=== PATIENT | male | born 1950 | race Caucasian/White ===

== ENCOUNTER → 2017-02-19 | Outpatient (CLI) | payer BC ==
[~2017-02-19] MED LIST: ASMTWH INH; ASPEC325 PO; ATOR-22 PO; CHOL100041 PO; COEN1CAP17 PO; FEXO1TAB46 PO; FLM4 PO; METO25TA56 PO; MODA1TAB PO; MULT-506 PO; NTRGSL/4 SL; OMEG120013 PO; POLY1DRO2 OPB; POLYSOL4 OPB; PSYL55.43 PO; VNTHFA/IN INH
[2017-02-19 09:38] LABS: BASO % 0.3 %; BASO ABS # 0.02 K/uL (0-0.2); COMPLETE YES; EOS % 1.6 %; HEMATOCRIT 39.8 % (42-52); IG% 0.2 %; LYMPH % 14.1 %; LYMPH ABS # 0.89 K/uL (1.2-3.4); MEAN CELL VOLUME 90.7 fL (80-100); MEAN CORPUSCULAR HEMOGLOBIN 31.4 pg (25-34); MEAN CORPUSCULAR HGB CONC 34.7 g/dl (32-36); MEAN PLATELET VOLUME 11.4 fL (7.4-10.4); MONO % 8.8 %; PLATELET COUNT 147 K/uL (130-400); RED BLOOD COUNT 4.39 M/uL (4.7-6.1); WHITE BLOOD COUNT 6.33 K/uL (4.8-10.8)
[2017-02-19 09:51] LABS: ESTIMATED AVERAGE GLUCOSE 197 mg/dl; HA1C FLAG Normal (Normal)
[2017-02-19 10:03] LABS: ALT/SGPT 58 U/L (12-78); AST/SGOT 30 U/L (15-37); BLOOD UREA NITROGEN 14 mg/dl (7-18); CALCIUM 8.7 mg/dl (8.5-10.1); CARBON DIOXIDE 30 mmol/L (21-32); CHLORIDE 104 mmol/L (98-107); CHOLESTEROL 194 mg/dl (0-200); CREATININE 0.85 mg/dl (0.60-1.40); GLUCOSE 185 mg/dl (70-99); POTASSIUM 4.4 mmol/L (3.5-5.1); SODIUM 139 mmol/L (136-145); TRIGLYCERIDES 161 mg/dl (0-150); VERY LOW DENSITY LIPOPROT CALC 32 mg/dl
[2017-02-19 10:11] LABS: ALB/GLOB RATIO 1.1 (0.9-2); ALKALINE PHOSPHATASE 65 U/L (45-117); HDL CHOLESTEROL 64 mg/dl; LDL CHOLESTEROL CALCULATED 98 mg/dl; PHOSPHORUS 3.2 mg/dl (2.5-4.9); URIC ACID 3.5 mg/dl (2.6-7.2)
[2017-02-22 11:43] LABS: C-REACTIVE PROT HIGHSEN 16.5 MG/L
== END | disposition home or self-care (01) ==
LOC: C.LAB 07:15
PROVIDERS: ATTEND Family Medicine
DX: R73.09 Other abnormal glucose (principal); E55.9 Vitamin D deficiency, unspecified; D51.9 Vitamin B12 deficiency anemia, unspecified

== ENCOUNTER → 2017-08-25 | Outpatient (CLI) | payer BC ==
[2017-08-25 09:42] LABS: BASO % 0.4 %; BASO ABS # 0.02 K/uL (0-0.2); COMPLETE YES; EOS % 1.5 %; HEMATOCRIT 40.3 % (42-52); IG% 0.2 %; LYMPH % 18.8 %; LYMPH ABS # 1.03 K/uL (1.2-3.4); MEAN CELL VOLUME 92.6 fL (80-100); MEAN CORPUSCULAR HEMOGLOBIN 31.7 pg (25-34); MEAN CORPUSCULAR HGB CONC 34.2 g/dl (32-36); MEAN PLATELET VOLUME 11.3 fL (7.4-10.4); MONO % 9.3 %; NEUT % 69.8 %; PLATELET COUNT 144 K/uL (130-400); RED BLOOD COUNT 4.35 M/uL (4.7-6.1); WHITE BLOOD COUNT 5.49 K/uL (4.8-10.8)
[2017-08-25 09:57] LABS: ALT/SGPT 45 U/L (12-78); AST/SGOT 24 U/L (15-37); BLOOD UREA NITROGEN 14 mg/dl (7-18); BUN/CREATININE RATIO 17.7 (10-20); CALCIUM 9.3 mg/dl (8.5-10.1); CARBON DIOXIDE 28 mmol/L (21-32); CHLORIDE 104 mmol/L (98-107); CHOLESTEROL 153 mg/dl (0-200); CREATININE 0.79 mg/dl (0.60-1.40); GLUCOSE 125 mg/dl (70-99); POTASSIUM 4.2 mmol/L (3.5-5.1); SODIUM 139 mmol/L (136-145); TRIGLYCERIDES 136 mg/dl (0-150); URIC ACID 5.1 mg/dl (2.6-7.2); VERY LOW DENSITY LIPOPROT CALC 27 mg/dl
[2017-08-25 10:06] LABS: ALB/GLOB RATIO 1.2 (0.9-2); ALKALINE PHOSPHATASE 48 U/L (45-117); CHOLESTEROL/HDL RATIO 2.6; HDL CHOLESTEROL 59 mg/dl; LDL CHOLESTEROL CALCULATED 67 mg/dl; TOTAL IRON BINDING CAPACITY 345 mcg/dl (250-450)
== END | disposition home or self-care (01) ==
LOC: C.LAB 08:28
PROVIDERS: ATTEND Family Medicine
DX: R73.09 Other abnormal glucose (principal); E55.9 Vitamin D deficiency, unspecified; D51.9 Vitamin B12 deficiency anemia, unspecified; E78.9 Disorder of lipoprotein metabolism, unspecified; R53.83 Other fatigue

== ENCOUNTER → 2017-12-21 | Outpatient (CLI) | payer BC ==
[2017-12-21 09:34] LABS: BASO % 0.2 %; BASO ABS # 0.01 K/uL (0-0.2); EOS % 2.3 %; EOS ABS # 0.12 K/uL (0-0.5); HEMOGLOBIN 13.6 g/dL (14.0-18.0); IG# 0.01 K/uL (0.00-0.02); LYMPH % 21.6 %; LYMPH ABS # 1.13 K/uL (1.2-3.4); MEAN CELL VOLUME 93.6 fL (80-100); MEAN CORPUSCULAR HEMOGLOBIN 31.1 pg (25-34); MEAN CORPUSCULAR HGB CONC 33.2 g/dl (32-36); MONO % 7.7 %; NEUT ABS # 3.55 K/uL (1.4-6.5); PLATELET COUNT 147 K/uL (130-400); RED CELL DISTRIBUTION WIDTH SD 48.3 fL (36.4-46.3); WHITE BLOOD COUNT 5.22 K/uL (4.8-10.8)
[2017-12-21 09:50] LABS: HEMOGLOBIN A1C 6.7 % (4.5-5.6)
[2017-12-21 09:57] LABS: ALBUMIN 3.7 gm/dl (3.4-5.0); ALKALINE PHOSPHATASE 47 U/L (45-117); ALT/SGPT 53 U/L (12-78); BLOOD UREA NITROGEN 15 mg/dl (7-18); CALCIUM 8.9 mg/dl (8.5-10.1); CARBON DIOXIDE 30 mmol/L (21-32); CREATININE 0.86 mg/dl (0.60-1.40); GLUCOSE 132 mg/dl (70-99); POTASSIUM 4.4 mmol/L (3.5-5.1); SODIUM 137 mmol/L (136-145); TOTAL PROTEIN 6.8 gm/dl (6.4-8.2); URIC ACID 4.8 mg/dl (2.6-7.2)
[2017-12-21 10:20] LABS: AST/SGOT 27 U/L (15-37); CHOLESTEROL 130 mg/dl (0-200); LDL CHOLESTEROL CALCULATED 51 mg/dl; TRANSFERRIN 254 mg/dl (200-360)
== END | disposition home or self-care (01) ==
LOC: C.LAB 07:57
PROVIDERS: ATTEND Family Medicine
DX: E88.81 Metabolic syndrome and other insulin resistance (principal); E55.9 Vitamin D deficiency, unspecified; D51.9 Vitamin B12 deficiency anemia, unspecified; E78.9 Disorder of lipoprotein metabolism, unspecified; R53.83 Other fatigue; N40.1 Benign prostatic hyperplasia with lower urinary tract symptoms; N52.9 Male erectile dysfunction, unspecified

== ENCOUNTER → 2018-01-10 | Outpatient (CLI) | payer BC ==
--- NOTE | 2018-01-10 11:08 | DIAGNOSTIC IMAGING REPORT ---
[facility] CLINICAL HISTORY: Nephrolithiasis. COMPARISON STUDY: CT of the abdomen and pelvis April 29, 2012 and KUB December 04, 2016. FINDINGS: A 4 mm calculus within lower pole of the left kidney is noted. No right renal calculi are identified. Pelvic calcifications likely reflect phleboliths. A 2 mm left pelvic calcification is new since prior exam of December 04, 2016. IMPRESSION: 1. 4 mm calculus within lower pole of the left kidney. 2. 2 mm left pelvic calcification. This is new since previous exam although a phlebolith is favored. A distal left ureteral calculus could appear similar although is considered less likely unless this patient has left flank pain. Electronically signed by: Joseph Kelly M.D. 01/10/2018 11:06 AM Dictated Date/Time: 01/10/2018 11:03 AM
== END | disposition home or self-care (01) ==
LOC: C.RAD 10:21
PROVIDERS: ATTEND Urology
DX: I25.10 Atherosclerotic heart disease of native coronary artery without angina pectoris (principal)

== ENCOUNTER → 2018-06-21 | Outpatient (CLI) | payer BC ==
[2018-06-21 09:37] LABS: BASO % 0.4 %; BASO ABS # 0.03 K/uL (0-0.2); EOS % 1.1 %; EOS ABS # 0.08 K/uL (0-0.5); HEMATOCRIT 39.1 % (42-52); HEMOGLOBIN 13.1 g/dL (14.0-18.0); IG# 0.03 K/uL (0.00-0.02); LYMPH % 16.7 %; LYMPH ABS # 1.23 K/uL (1.2-3.4); MEAN CELL VOLUME 92.4 fL (80-100); MEAN CORPUSCULAR HGB CONC 33.5 g/dl (32-36); MEAN PLATELET VOLUME 11.3 fL (7.4-10.4); MONO % 4.9 %; MONO ABS # 0.36 K/uL (0.11-0.59); NEUT % 76.5 %; NEUT ABS # 5.63 K/uL (1.4-6.5); PLATELET COUNT 218 K/uL (130-400); RED CELL DISTRIBUTION WIDTH SD 47.7 fL (36.4-46.3); WHITE BLOOD COUNT 7.36 K/uL (4.8-10.8)
[2018-06-21 09:47] LABS: HEMOGLOBIN A1C 7.4 % (4.5-5.6)
[2018-06-21 10:00] LABS: ALBUMIN 3.3 gm/dl (3.4-5.0); ALKALINE PHOSPHATASE 53 U/L (45-117); ALT/SGPT 49 U/L (12-78); AST/SGOT 28 U/L (15-37); BLOOD UREA NITROGEN 15 mg/dl (7-18); CALCIUM 8.6 mg/dl (8.5-10.1); CARBON DIOXIDE 27 mmol/L (21-32); CHOLESTEROL 125 mg/dl (0-200); CREATININE 0.92 mg/dl (0.60-1.40); GLUCOSE 144 mg/dl (70-99); LDL CHOLESTEROL CALCULATED 48 mg/dl; POTASSIUM 4.3 mmol/L (3.5-5.1); SODIUM 136 mmol/L (136-145); TOTAL PROTEIN 6.8 gm/dl (6.4-8.2); TRANSFERRIN 238 mg/dl (200-360); URIC ACID 4.6 mg/dl (2.6-7.2)
== END | disposition home or self-care (01) ==
LOC: C.LAB 07:51
PROVIDERS: ATTEND Family Medicine
DX: R73.09 Other abnormal glucose (principal); E55.9 Vitamin D deficiency, unspecified; D51.9 Vitamin B12 deficiency anemia, unspecified; E78.9 Disorder of lipoprotein metabolism, unspecified; R53.83 Other fatigue

== ENCOUNTER 2022-10-31 19:23 | Observation (INO) ==
[2022-10-31] MEDS ORDERED: ASPIRIN CHEW 324 MG PO STA (19:46)
[2022-10-31] MEDS ORDERED: NITROGLYCERIN SL 0.4 MG/TAB TAB SL STA (19:47)
[2022-10-31 19:50] LABS: Basophils # (auto) 0.04 K/uL (0-0.2); Basophils % (auto) 0.6 %; Eosinophils # (auto) 0.11 K/uL (0-0.50); Eosinophils % (auto) 1.5 %; Hematocrit (blood only) 40.9 % (40.1-51.0); Hemoglobin 13.7 g/dl (14.0-18.0); Immature Granulocytes # (auto) 0.01 K/uL (0.00-0.02); Immature Granulocytes % (auto) 0.1 %; Lymphocytes # (auto) 1.77 K/uL (1.2-3.4); Lymphocytes % (auto) 24.4 %; Mean Corpuscular Hemoglobin 31.9 pg (25.0-34.0); Mean Corpuscular Hgb Conc 33.5 g/dL (32.0-36.0); Mean Corpuscular Volume 95.1 fL (80.0-100.0); Mean Platelet Volume 10.6 fL (9.4-12.4); Monocytes # (auto) 0.56 K/uL (0.24-0.82); Monocytes % (auto) 7.7 %; Neutrophils # (auto) 4.76 K/uL (1.4-6.5); Neutrophils % (auto) 65.7 %; Platelet Count 157 K/uL (130-400); RDW Coefficient of Variation 14.2 % (11.5-14.5); RDW Standard Deviation 49.1 fL (36.4-46.3); White Blood Count 7.25 K/ul (4.8-10.8)
--- NOTE | 2022-10-31 20:02 | Emergency Department Note ---
Impression & Plan Chest pain, Nausea ED Provider Note NAME: AURY ARMENTA Jr AGE: 72 SEX: M : 1950 ARRIVES VIA: Walk-In INFORMANT: Patient ED PROVIDER(S): Arun Felipe DO CHIEF COMPLAINT: chest pressure HPI: Patient is a 72-year-old male who presents ER with a past medical history of hyperlipidemia, diabetes, CAD with a stent in 2009 and a CABG in 2010 who presents to the ER for nausea and chest pressure. He has been sick to his stomach for the majority of the day today. About an hour prior to arrival he started having mid chest pressure. No arm pain or jaw pain. No shortness of breath that he can ascertain. Denies any belly pain. No dysuria, urgency, or frequency. No other exacerbating or remitting factors. Pain is currently a 2-3 out of 10. Did improve with nitro. ROS: See above HPI for pertinent positives & negatives. A total of 10 systems reviewed and were otherwise negative. PAST MEDICAL HISTORY:See Below PAST SURGICAL HISTORY:See Below FAMILY HISTORY:See Below SOCIAL HISTORY:See Below HOME MEDICATIONS:See Below ALLERGIES:See Below VITALS:See Below PHYSICAL EXAMINATION: GENERAL: Sitting up in bed, alert, well appearing, well nourished, no distress, non-toxic EYE EXAM: normal conjunctiva. OROPHARYNX: no exudate, no erythema, lips, buccal mucosa, and tongue normal and mucous membranes are moist NECK: supple, no nuchal rigidity, no adenopathy, non-tender LUNGS: Clear to auscultation. Normal chest wall mechanics HEART: no murmurs, S1 normal and S2 normal ABDOMEN: abdomen soft, non-tender, normo-active bowel sounds, no masses, no r ebound or guarding. BACK: Back is symmetrical on inspection and there is no deformity, no midline t enderness, no CVA tenderness. SKIN: no rashes and no bruising UPPER EXTREMITIES: upper extremities are grossly normal. LOWER EXTREMITIES: No pitting edema. NEURO EXAM: Normal sensorium, cranial nerves II-XII grossly intact, normal speech, no gross weakness of arms, no gross weakness of legs. MEDICAL DECISION MAKING: Patient 72-year-old male with past medical history of previous stents and bypass that presents to the ER for nausea and chest pressure. Improved with nitro at home. IVs were established blood work was obtained. EKG shows new T wave inversions in V4 through V6 and nonspecific ST wave changes which are new in comparison to EKG in 2014. IV was established blood was obtained. Labs show no significant leukocytosis. No anemia. BMP along with LFTs bilirubin lipase was unremarkable. Troponin was negative. COVID-negative. Lipase was unremarkable. Chest x-ray was clean. Patient was given nitro while in the ER and his pain completely resolved. He was also given aspirin. He was updated bedside. Chest x-ray was clean. Discussed with Pj Christie for further evaluation. Triage Nursing notes reviewed. Limited review of prior medical records performed Vital Signs: reviewed and remarkable for no significant abnormalities Differential diagnosis: Cardiac ischemia, aortic dissection, pulmonary embolism, pneumothorax, pneumonia, pericarditis, myocarditis, esophageal rupture, GERD, cholecystitis, pancreatitis, musculoskeletal, as well as other pathologies. ER treatment provided: See below Diagnostics interpreted by me: ECG: Sinus rhythm rate 65 Left axis No PVCs T wave inversion in the septal leads ST depressions in V4 through V6 with T wave inversions new in comparison to old ekg in 2014 QTC 434 Cardiac Monitoring: An order was placed for continuous cardiac monitoring. The monitor shows a rate of 60 with sinus rhythm. Laboratory studies: As stated above and show below. Imaging studies: Portable AP upright 1 view the chest was unremarkable Consultation(s): Discussed with Dr. Pj Christie for further evaluation Procedures: none Critical Care: None Past Med/Surg History Medical History Arthritis COVID-19 Elevated PSA GERD (gastroesophageal reflux disease) Gross hematuria H/O adenomatous polyp of colon History of colon polyps Migraine 25 YRS AGO-WITH VISION DISTORTION AT THE TIME MVP (mitral valve prolapse) HX NO DENTAL PREMED Restrictive lung disease secondary to obesity UTI (urinary tract infection) Surgical History H/O lithotripsy History of colonoscopy History of tooth extraction WISDOM TEETH S/P CABG x 2 (2010) YAMINI & LEON grafts, no vein grafts Status post insertion of drug-eluting stent into left anterior descending artery for coronary artery disease (2009) Family History Father Myocardial infarction Coronary heart disease Diabetes Aunt Family history of diabetes mellitus Mother Myocardial infarction age related Glaucoma Aunt Diabetes maternal Denies family history of Prostate cancer Breast cancer Colorectal cancer Social History Smoking Status: Never smoker Second Hand Exposure: Yes ( A CHILD); Hx Alcohol Use: Yes Alcohol type: beer, wine and hard liquor Alcohol Intake Frequency Comment: 1-2 times weekly Hx Substance Use: No Preferred Language: Senegalese Communication Ability: Effective Visual Impairment: Limited Hearing Ability: Normal 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 Beliefs That Will Affect Care: None marital status: Current Living Situation: Spouse and Family current occupational status: retired How many Children do You have: 2 Feels Safe at Home: Yes Childhood Exposure to Second-Hand Smoke: Yes caffeine: Yes (coffee ) Dental Care, Regularly: Yes Physical Activity Frequency: Daily Physical Activity Frequency Comment: walks Seatbelt Use: always Sunscreen Use: Yes Assistive Devices: Glasses Allergies Allergies Allergy/AdvReac Type Severity Reaction Status Date / Time cat dander Allergy Mild CONGESTION Verified 10/31/22 20:15 Home Meds Home Medications Medication Instructions Recorded Confirmed multivitamin (Daily Multi-Vitamin 0.5 tab PO BID 09/19/19 10/31/22 tablet) aspirin 325 mg tablet 325 mg PO HS 11/30/19 10/31/22 fexofenadine 180 mg tablet 180 mg PO DAILY PRN Congestion 11/30/19 10/31/22 psyllium husk 3.4 gram/5.4 gram 1 tbsp PO QAM 11/30/19 10/31/22 oral powder (Metamucil) artificial tears(hypromellose) 0.3 1 drp ophthalmic (eye) DAILY PRN 09/25/21 10/31/22 % eye gel (Systane Gel) Dry Eyes biotin 1,000 mcg chewable tablet 1,000 mcg PO TID 09/25/21 10/31/22 cholecalciferol (vitamin D3) 25 1,000 unit PO TID 09/25/21 10/31/22 mcg (1,000 unit) capsule propylene glycol 0.6 % eye drops 2 drp ophthalmic (eye) DAILY PRN 09/25/21 10/31/22 (Systane Balance) Dry Eyes CPAP Machine 07/31/22 09/29/22 ascorbic acid (vitamin C) 500 mg 500 mg PO DAILY 07/31/22 10/31/22 tablet zinc gluconate 50 mg tablet 50 mg PO DAILY 07/31/22 10/31/22 coQ10 (ubiquinol) 200 mg capsule 200 mg PO Q OTHER DAY 10/31/22 10/31/22 mometasone 220 mcg/actuation(60 1 inh inhalation BID 10/31/22 10/31/22 doses) breath activated powder inhaler (Asmanex Twisthaler) Previous Rx's Medication Instructions Recorded albuterol sulfate 90 mcg/actuation See Rx Instructions .Route 04/21/22 aerosol inhaler .COMPLEX #18 ea sildenafil 100 mg tablet 100 mg PO DAILY PRN sexual 04/21/22 activity #10 tabs modafinil 200 mg tablet 200 mg PO DAILY #90 tabs 06/01/22 atorvastatin 40 mg tablet 40 mg PO HS #90 tabs 07/06/22 losartan 50 mg-hydrochlorothiazide 1 tab PO QAM #90 tabs 07/06/22 12.5 mg tablet tamsulosin 0.4 mg capsule 0.4 mg PO DAILY #90 caps 08/25/22 metformin 750 mg tablet,extended 1,500 mg PO QPM #180 tabs 09/02/22 release 24 hr metoprolol succinate 25 mg 25 mg PO DAILY #90 tabs 09/29/22 tablet,extended release 24 hr nitroglycerin 0.4 mg sublingual 0.4 mg sublingual Q5M PRN chest 09/29/22 tablet pain #20 tabs sitagliptin phosphate 100 mg tablet 100 mg PO QAM #90 tabs 10/09/22 Results & Data (ED) Vital Signs Vital Signs - 24 hr 10/31/22 19:29 10/31/22 19:41 10/31/22 19:41 Temperature 36.5 C Temperature Source Temporal Artery Scan Pulse Rate 62 Pulse Rate [Apical] 62 Respiratory Rate 16 20 Blood Pressure 152/72 H Blood Pressure [Right Arm] 145/76 H Blood Pressure Mean 98 Blood Pressure Mean [Right Arm] 99 Pulse Oximetry 95 96 Oxygen Delivery Method Room Air Room Air Room Air Sepsis Recent Fever Within 48 Hours No Sepsis New/Unexplained Change in Mental Status N/A Sepsis Action Taken by Nursing No Action Required 10/31/22 19:41 Temperature Temperature Source Pulse Rate Pulse Rate [Apical] Respiratory Rate Blood Pressure Blood Pressure [Right Arm] Blood Pressure Mean Blood Pressure Mean [Right Arm] Pulse Oximetry 97 Oxygen Delivery Method Room Air Sepsis Recent Fever Within 48 Hours Sepsis New/Unexplained Change in Mental Status Sepsis Action Taken by Nursing Laboratory Data Result diagrams: 10/31/22 19:38 10/31/22 19:38 Lab Results 10/31/22 10/31/22 10/31/22 Range/Units 19:38 19:38 19:53 WBC 7.25 (4.8-10.8) K/ul RBC 4.30 L (4.63-6.08) M/uL Hgb 13.7 L (14.0-18.0) g/dl Hct 40.9 (40.1-51.0) % MCV 95.1 (80.0-100.0) fL MCH 31.9 (25.0-34.0) pg MCHC 33.5 (32.0-36.0) g/dL RDW Std Deviation 49.1 H (36.4-46.3) fL RDW Coeff of Tamie 14.2 (11.5-14.5) % Plt Count 157 (130-400) K/uL MPV 10.6 (9.4-12.4) fL Immature Gran % (Auto) 0.1 % Neut % (Auto) 65.7 % Lymph % (Auto) 24.4 % [place] % (Auto) 7.7 % Eos % (Auto) 1.5 % Baso % (Auto) 0.6 % Neut # (Auto) 4.76 (1.4-6.5) K/uL Lymph # (Auto) 1.77 (1.2-3.4) K/uL [place] # (Auto) 0.56 (0.24-0.82) K/uL Eos # (Auto) 0.11 (0-0.50) K/uL Baso # (Auto) 0.04 (0-0.2) K/uL Immature Gran # (Auto) 0.01 (0.00-0.02) K/uL Sodium 140 (136-145) mmol/L Potassium 4.1 (3.5-5.1) mmol/L Chloride 102 (98-107) mmol/L Carbon Dioxide 32 (21-32) mmol/L Anion Gap 6 (3-11) BUN 17 (6-23) mg/dl Creatinine 0.75 (0.6-1.4) mg/dl Est Cr Clr Drug Dosing 105.2 ml/min Est GFR ( Amer) 104.7 ml/min Est GFR (Non-Af Amer) 90.4 ml/min BUN/Creatinine Ratio 22.7 H (10-20) Glucose 162 H (70-99(Fasting)) mg/dl Calcium 9.0 (8.5-10.1) mg/dl Total Bilirubin 0.4 (0.2-1.0) mg/dl AST 30 (13-39) U/L ALT 49 (7-52) U/L Alkaline Phosphatase 49 (34-104) U/L Troponin I High Sens 7.3 (0-20) pg/ml Total Protein 6.6 (6.0-8.3) gm/dl Albumin 4.2 (3.4-5.0) gm/dl Globulin 2.4 L (2.5-4.0) gm/dl Albumin/Globulin Ratio 1.8 (0.9-2) Lipase 19 (11-82) U/L SARS-CoV-2, RNA, NAAT NEGATIVE (NEGATIVE) Administered Medications Discontinued Medications Aspirin (Aspirin Chew 324 Mg) 324 mg PO NOW STA Stop: 10/31/22 19:47 Last Admin: 10/31/22 19:54 Dose: 324 mg Documented By: ES Nitroglycerin (Nitroglycerin Sl 0.4 Mg/Tab Tab) 0.4 mg SL NOW STA Stop: 10/31/22 19:48 Last Admin: 10/31/22 19:54 Dose: 0.4 mg Documented By: ES Imaging Data Radiologist's Impression: Chest X-Ray 10/31/22 19:32 XR chest 1V portable CLINICAL HISTORY: Chest pain, nonspecific COMPARISON STUDY: Chest radiograph January 05, 2014. FINDINGS: Median sternotomy wires and mediastinal surgical clips are noted. Cardiomegaly is unchanged. There is no pneumothorax or pleural effusion. There is no consolidation or evidence for pulmonary edema. Minimal linear left basilar opacity favors atelectasis. IMPRESSION: No acute cardiopulmonary findings. No change in appearance of the chest. ACT 112: Negative or not required by law. Electronically signed by: Joseph Kelly M.D. 10/31/2022 8:20 PM Discharge Plan Visit Data Chief Complaint: Chest Pain Stated Complaint: TIGHTNESS IN CHEST, ED Provider: Arun Felipe Discharge Problem: Chest pain, Nausea Patient Disposition: Admitted As Inpatient Discharge Instructions Interventions: ED Discharge Assessment Last Done: 10/31/22 21:12
[2022-10-31 20:18] LABS: Albumin Globulin Ratio 1.8 (0.9-2); Albumin Level 4.2 gm/dl (3.4-5.0); BUN Creatinine Ratio 22.7 (10-20); Bilirubin,Total 0.4 mg/dl (0.2-1.0); Creatinine Clr Calc Pharmacy 105.2 ml/min; Est GFR (African American) 104.7 ml/min; Est GFR (Non-African American) 90.4 ml/min; Globulin 2.4 gm/dl (2.5-4.0); Potassium 4.1 mmol/L (3.5-5.1); Total Protein 6.6 gm/dl (6.0-8.3); Troponin I High Sensitivity 7.3 pg/ml (0-20)
--- NOTE | 2022-10-31 20:22 | XRay Report ---
XR chest 1V portable CLINICAL HISTORY: Chest pain, nonspecific COMPARISON STUDY: Chest radiograph January 05, 2014. FINDINGS: Median sternotomy wires and mediastinal surgical clips are noted. Cardiomegaly is unchanged . There is no pneumothorax or pleural effusion. There is no consolidation or evidence for pulmonary e grace. Minimal linear left basilar opacity favors atelectasis. IMPRESSION: No acute cardiopulmonary findings. No change in appearance of the chest. ACT 112: Negative or not required by law. Electronically signed by: Joseph Kelly M.D. 10/31/2022 8:20 PM
--- NOTE | 2022-10-31 20:41 | History & Physical Report ---
Date of Service October 31, 2022 Assessment & Plan (1) Chest pain: Plan: - Nausea throughout the day with central chest pressure this evening, alleviated with nitro at home. - Initial troponin 7.3, repeat ordered for this evening. - EKG not yet uploaded and available for my review, per ER provider note there were ST depressions in V3 to V6 with T wave inversions. Last EKG in our system was from 2013. - Patient states he had an EKG done within the past year as an outpatient, he is trying to access it on his phone to show us for comparison. - Chest pain did improve with nitro at home, he also received an additional dose of nitro and a full dose of aspirin in ED. - He will be observed overnight for repeat troponins, echo in AM. - Cardiology consulted given episodes of bradycardia. - Per review of his most recent cardiology visit from last month, he had been doing well from a cardiac standpoint, physically active without any chest pain working at the [employer]. His metoprolol dose was changed from 25 mg tartrate twice daily to metoprolol succinate 25 mg once daily due to mild bradycardia. He remains on losartan/HCTZ and a moderate dose of a high high intensity statin. (2) Bradycardia: Plan: - Patient's previously been told he has low heart rate, metoprolol was recently dose from tartrate 25 mg twice daily to 25 mg succinate once daily. - During ED evaluation, heart rate has been as low as 39, frequently in the 40s, patient has been asymptomatic with this. - We will hold his metoprolol, have cardiology evaluate him in the morning. - With increased fatigue over the past several weeks/months, consideration has been given to hypothyroidism. TSH last checked in July, was normal at that time. (3) Nausea: Plan: - Patient and his both have had some nonspecific abdominal pain and nausea over the past several days, he also had a spicy meal this evening for dinner, suspect nausea and chest pressure may be GERD related if no cardiac cause can be determined. - Will order Protonix. (4) CAD (coronary artery disease): Plan: - SRAVANI to the LAD in 2009, CABG in 2010 with YAMINI and LEON grafts and no vein grafts. - Continue metoprolol losartan/HCTZ,, aspirin. - Echo 2013: Normal stress echo, no exercise-induced chest pain or ischemia, no EKG changes, dysrhythmia. (5) HTN (hypertension): Plan: - Continue metoprolol, HCTZ/losartan. (6) Hyperlipidemia: Plan: - Continue statin. (7) Diabetes: Plan: - On metformin and sitagliptin at home, hold all admitted. - SSI basal/bolus insulin. - A1c in July 29 0.1%. - DM2 diet. (8) Obstructive sleep apnea: Plan: - CPAP at night. - Continue modafinil. (9) Benign localized hyperplasia of prostate with urinary obstruction: Plan: - Continue Flomax. (10) Anemia: Plan: - Hgb 13.7, at baseline. (11) Extrinsic asthma: Plan: - No evidence of exacerbation today, continue home inhalers. Plan - Admit to med telemetry. - SCDs for VTE PPx. -Full Code. History of Present Illness Chief Complaint: nausea, chest pressure x 1 day Primary Care Provider: Marcel Porter MD Vinay Mustafa is a 72-year-old male with a past medical history significant for CAD s/p drug-eluting LAD stent 2009, CABG 2010 with YAMINI, LEON grafts, hypertension, hyperlipidemia, diabetes, MAXIMO, BPH, and GERD who is presenting today with onset of chest pressure and nausea. Patient states for the past couple days he and his have had some GI upset and intermittent nausea due to a meal they ate on , and today was similar to previous days in which she just felt nauseous throughout the day. This evening he had chest he is with cheese and salsa as well as cheese stuffed shells. Shortly after he walked downstairs into his office, and while at rest had onset of central chest pressure. He does note he felt warm with the episode but there is a wood- burning stove in his office and he attributes it to this. The pain did not radiate anywhere, he was not short of breath with it, did not get any more nauseous or vomit with the episode. No lightheadedness, dizziness, palpitations. He took nitro which alleviated the pain very quickly. He is presenting to the ED for further evaluation. Currently rates chest pain 0/10, was still having some mild chest pain on presentation so he did receive an additional dose of nitro which has worked well. Upon presentation to the ED, he is hypertensive 152/72, otherwise vital signs are all within normal limits. Labs are largely unremarkable, he has any hemoglobin of 13.7 which is his baseline. There is no leukocytosis, electrolyte abnormalities, or elevated troponin, his first was measured at 7.3. His glucose is a bit up at 162. CXR shows no acute disease process. He was given a full dose aspirin as well as nitroglycerin in the ED, with al leviation in his chest pressure. Allergies Allergy/AdvReac Type Severity Reaction Status Date / Time cat dander Allergy Mild CONGESTION Verified 10/31/22 20:15 Home Medications Medication Instructions Recorded Confirmed Type multivitamin (Daily Multi-Vitamin 0.5 tab PO BID 09/19/19 10/31/22 History tablet) aspirin 325 mg tablet 325 mg PO HS 11/30/19 10/31/22 History fexofenadine 180 mg tablet 180 mg PO DAILY PRN Congestion 11/30/19 10/31/22 History psyllium husk 3.4 gram/5.4 gram 1 tbsp PO QAM 11/30/19 10/31/22 History oral powder (Metamucil) artificial tears(hypromellose) 0.3 1 drp ophthalmic (eye) DAILY PRN 09/25/21 10/31/22 History % eye gel (Systane Gel) Dry Eyes biotin 1,000 mcg chewable tablet 1,000 mcg PO TID 09/25/21 10/31/22 History cholecalciferol (vitamin D3) 25 1,000 unit PO TID 09/25/21 10/31/22 History mcg (1,000 unit) capsule propylene glycol 0.6 % eye drops 2 drp ophthalmic (eye) DAILY PRN 09/25/21 10/31/22 History (Systane Balance) Dry Eyes albuterol sulfate 90 mcg/actuation See Rx Instructions .Route 04/21/22 10/31/22 Rx aerosol inhaler .COMPLEX #18 ea sildenafil 100 mg tablet 100 mg PO DAILY PRN sexual 04/21/22 10/31/22 Rx activity #10 tabs modafinil 200 mg tablet 200 mg PO DAILY #90 tabs 06/01/22 10/31/22 Rx atorvastatin 40 mg tablet 40 mg PO HS #90 tabs 07/06/22 10/31/22 Rx losartan 50 mg-hydrochlorothiazide 1 tab PO QAM #90 tabs 07/06/22 10/31/22 Rx 12.5 mg tablet CPAP Machine 07/31/22 09/29/22 History ascorbic acid (vitamin C) 500 mg 500 mg PO DAILY 07/31/22 10/31/22 History tablet zinc gluconate 50 mg tablet 50 mg PO DAILY 07/31/22 10/31/22 History tamsulosin 0.4 mg capsule 0.4 mg PO DAILY #90 caps 08/25/22 10/31/22 Rx metformin 750 mg tablet,extended 1,500 mg PO QPM #180 tabs 09/02/22 10/31/22 Rx release 24 hr metoprolol succinate 25 mg 25 mg PO DAILY #90 tabs 09/29/22 10/31/22 Rx tablet,extended release 24 hr nitroglycerin 0.4 mg sublingual 0.4 mg sublingual Q5M PRN chest 09/29/22 10/31/22 Rx tablet pain #20 tabs sitagliptin phosphate 100 mg tablet 100 mg PO QAM #90 tabs 10/09/22 10/31/22 Rx coQ10 (ubiquinol) 200 mg capsule 200 mg PO Q OTHER DAY 10/31/22 10/31/22 History mometasone 220 mcg/actuation(60 1 inh inhalation BID 10/31/22 10/31/22 History doses) breath activated powder inhaler (Asmanex Twisthaler) famotidine 20 mg tablet (Pepcid) 20 mg PO BID 6 weeks #84 tabs 11/01/22 Rx Past Med/Surg History Medical History (Updated 10/31/22 @ 21:24 by Lucrecia Lopez PA-C) Arthritis COVID-19 Elevated PSA GERD (gastroesophageal reflux disease) Gross hematuria H/O adenomatous polyp of colon History of colon polyps Migraine 25 YRS AGO-WITH VISION DISTORTION AT THE TIME MVP (mitral valve prolapse) HX NO DENTAL PREMED Restrictive lung disease secondary to obesity UTI (urinary tract infection) Surgical History (Updated 11/01/22 @ 14:14 by Robin Spivey MD) H/O lithotripsy History of colonoscopy History of tooth extraction WISDOM TEETH S/P CABG x 2 (2010) YAMINI & LEON grafts, no vein grafts Status post insertion of drug-eluting stent into left anterior descending artery for coronary artery disease (2009) Family History Father Myocardial infarction Coronary heart disease Diabetes Aunt Family history of diabetes mellitus Mother Myocardial infarction age related Glaucoma Aunt Diabetes maternal Denies family history of Prostate cancer Breast cancer Colorectal cancer Social History Smoking Status: Never smoker Second Hand Exposure: No; Do You Dip or Chew Tobacco: No; Tobacco Cessation Education Requested by Patient: No Hx Alcohol Use: Yes Alcohol type: wine Alcohol Intake Frequency Comment: 1-2 times weekly Hx Substance Use: No Preferred Language: Andorran Communication Ability: Effective Visual Impairment: Limited Hearing Ability: Normal 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 Beliefs That Will Affect Care: None marital status: Current Living Situation: Spouse current occupational status: retired How many Children do You have: 2 Other Information That Helps Us Care for You: No Feels Safe at Home: Yes Safety Concerns: Feels Safe At This Time Childhood Exposure to Second-Hand Smoke: Yes caffeine: Yes (coffee ) Dental Care, Regularly: Yes Physical Activity Frequency: Daily Physical Activity Frequency Comment: walks Seatbelt Use: always Sunscreen Use: Yes Assistive Devices: Glasses Review of Systems 2 Review of Systems: Constitutional: No fever/chills, weakness, fatigue, myalgias, anorexia, night sweats Eyes: No diplopia, no worsening or blurred vision ENT: normal hearing, no trouble swallowing Respiratory: No cough, sputum, dyspnea at rest or on exertion Cardiovascular: Chest pressure this evening, centrally located without radiation, alleviated with nitro Abdomen: No pain, nausea, vomiting, diarrhea or constipation : Denies dysuria, hematuria, increased urgency/frequency, urinary retention Musculoskeletal: No joint pain, calf pain, swelling Neurologic: No weakness, numbness/tingling, or balance problems Psychiatric: No anxiety or depression Skin: No rash or itch Physical Exam Physical Exam: General: awake, alert, no apparent distress Head: Normocephalic, atraumatic ENT: PERRL, EOMI, no pharyngeal exudate, mucous membranes moist Chest: Clear to auscultation, on room air, no adventitious breath sounds Cardiac: Bradycardic rate, regular rhythm, no murmur, no JVD, normal peripheral pulses, good capillary refill Abdominal: NABS x 4 quadrants, soft, nontender to palpation, no rebound, guarding or tenderness Extremities: Normal inspection, no peripheral edema or erythema, calfs nontender to palpation Psych: Normal mood and affect Neuro: AAO x 3, strength intact bilaterally and rated 5/5, no motor deficits, speech is clear, no peripheral sensory deficits Skin: no rash or erythema Results & Data Results & Data ([facility]) Vital Signs (Past 12 Hours) Vital Signs Temp Pulse Pulse Resp BP BP Pulse Ox 10/31/22 19:41 97 10/31/22 19:41 62 20 145/76 H 96 10/31/22 19:41 10/31/22 19:29 36.5 C 62 16 152/72 H 95 O2 Del Method 10/31/22 19:41 Room Air 10/31/22 19:41 Room Air 10/31/22 19:41 Room Air 10/31/22 19:29 Room Air Laboratory Results Abnormal lab results 10/31/22 10/31/22 Range/Units 19:38 19:38 RBC 4.30 L (4.63-6.08) M/uL Hgb 13.7 L (14.0-18.0) g/dl RDW Std Deviation 49.1 H (36.4-46.3) fL BUN/Creatinine Ratio 22.7 H (10-20) Glucose 162 H (70-99(Fasting)) mg/dl Globulin 2.4 L (2.5-4.0) gm/dl Diagnostic Findings Chest X-Ray 10/31/22 19:32 XR chest 1V portable CLINICAL HISTORY: Chest pain, nonspecific COMPARISON STUDY: Chest radiograph January 05, 2014. FINDINGS: Median sternotomy wires and mediastinal surgical clips are noted. Cardiomegaly is unchanged. There is no pneumothorax or pleural effusion. There is no consolidation or evidence for pulmonary edema. Minimal linear left basilar opacity favors atelectasis. IMPRESSION: No acute cardiopulmonary findings. No change in appearance of the chest. ACT 112: Negative or not required by law. Electronically signed by: Joseph Kelly M.D. 10/31/2022 8:20 PM Code Status & VTE Plan Code Status Full code. Supervising Physician Co-Signing Physician Notes Attending addendum: I have physically seen this patient, have supervised the BEATRIZ's activities, and agree with the H&P unless as otherwise noted. Assessment and Plan: Chest pain of uncertain etiology/bradycardia/CAD/2010 SRAVANI to LAD/status post CABG times 12/2010/hypertension- The patient will be admitted to telemetry for serial cardiac enzymes, serial EKG's, cardiac rhythm monitoring and a 2-D echocardiogram with Dopplers. Initial troponin normal at 7.3 Continue aspirin, atorvastatin high-dose, losartan/HCTZ, and metoprolol succinate Will consider holding modafinil for now Consult cardiology If recurrence of symptoms, start heparin drip Bradycardia- Recently changed from metoprolol tartrate 25 twice daily to metoprolol succinate 25 mg daily Monitor on telemetry, consulting cardiology for possible dose adjustment Hyperlipidemia- Continue atorvastatin 40 mg daily Checking fasting lipid panel Remaining orders and notations as noted PG Care Time/CCT Total # of Minutes Spent Total Time Spent with Patient: Total time spent is greater than 50% in coordination of care (as documented) at patient's floor/unit and/or counseling patient: Coding Level of Care Code INT OBSERVATION CARE 70M LVL 3 Diagnoses Chest pain R07.9 Bradycardia R00.1 Nausea R11.0 CAD (coronary artery disease) I25.10 HTN (hypertension) I10 Hyperlipidemia E78.5 Diabetes E11.9 Obstructive sleep apnea G47.33 Benign localized hyperplasia of prostate with urinary obstruction N40.1; N13.8 Anemia D64.9 Extrinsic asthma J45.909
[2022-10-31] MEDS ORDERED: DEXTROSE 50% 50 ML SYRINGE IV PRN (21:44)
[2022-10-31] MEDS ORDERED: GLUCOSE 10 TAB/TUBE PO PRN (21:44)
[2022-10-31] MEDS ORDERED: GLUCAGON FOR INJ 1 MG VIAL SQ PRN (21:44)
[2022-10-31] MEDS ORDERED: NON-FORMULARY MEDICATION (Biotin 1,000 mcg tablet,chewable) PO SCH (21:44)
[2022-10-31] MEDS ORDERED: ATORVASTATIN 40 MG TAB PO SCH (21:44)
[2022-10-31] MEDS ORDERED: CARBOHYDRATES FOR HYPOGLYCEMIA PO PRN (21:44)
[2022-10-31] MEDS ORDERED: ACETAMINOPHEN 325 MG TAB PO PRN (21:44)
[2022-10-31] MEDS ORDERED: ALBUTEROL HFA 8 GM INHALER INH PRN (21:44)
[2022-10-31] MEDS ORDERED: NON-FORMULARY MEDICATION (Coq10 (Ubiquinol) 200 mg Capsule) PO SCH (21:44)
[2022-10-31] MEDS ORDERED: GLUCOSE 40% GEL 15 GM TUBE PO PRN (21:44)
[2022-10-31] MEDS ORDERED: ALUMINUM/MAGNESIUM SUSP 30 ML UDC PO PRN (21:44)
[2022-10-31] MEDS ORDERED: FEXOFENADINE HCL 180 MG TAB PO PRN (21:44)
[2022-10-31] MEDS ORDERED: ONDANSETRON INJ 2 MG/ML 2 ML VIAL IV PRN (21:44)
[2022-10-31] MEDS ORDERED: NITROGLYCERIN SL 0.4 MG/TAB TAB SL PRN (21:44)
[2022-10-31] MEDS ORDERED: ARTIFICIAL TEARS OP PRN (22:06)
[2022-10-31] MEDS: LANTUS PER UNIT CHARGE SQ SCH (22:39)
[2022-10-31] MEDS: INSULIN ASPART PER UNIT SC SCH (22:39)
[2022-10-31] MEDS: MULTIVITAMIN TAB PO SCH (22:43)
[2022-10-31] MEDS: CHOLECALCIFEROL 1,000 UNITS 25 MCG TAB PO SCH (22:44)
[2022-10-31] MEDS ORDERED: NITROGLYCERIN 2% OINTMENT 30GM TUBE EXT ONE (22:57)
[2022-10-31] MEDS: NITROGLYCERIN 2% OINTMENT 30GM TUBE EXT SCH (23:09)
[2022-11-01] MEDS: NITROGLYCERIN 2% OINTMENT 30GM TUBE EXT SCH ×3 (06:11→17:29)
[2022-11-01] MEDS: INSULIN ASPART PER UNIT SC SCH ×3 (08:47→17:27)
[2022-11-01] MEDS: LANTUS PER UNIT CHARGE SQ SCH (08:47)
[2022-11-01] MEDS: CHOLECALCIFEROL 1,000 UNITS 25 MCG TAB PO SCH ×2 (08:51→12:53)
[2022-11-01] MEDS: MULTIVITAMIN TAB PO SCH (08:51)
[2022-11-01] MEDS ORDERED: FLUTICASONE FUROATE 200MCG 14 PUFFS/INHALER INH SCH (09:00)
[2022-11-01] MEDS ORDERED: METOPROLOL SUCC 25MG EXT REL TAB PO SCH ×2 (09:00)
[2022-11-01] MEDS ORDERED: LOSARTAN/HCTZ 50/12.5MG TAB PO SCH (09:00)
[2022-11-01] MEDS ORDERED: TAMSULOSIN HCL 0.4 MG CAP PO SCH ×2 (09:00→21:00)
[2022-11-01] MEDS ORDERED: Nursing to Pharmacy Communication SCH ×2 (09:00→12:15)
[2022-11-01] MEDS ORDERED: PANTOprazole 40 MG TAB PO SCH (09:00)
[2022-11-01] MEDS ORDERED: ZINC SULFATE 220 MG CAPSULE PO SCH (09:00)
[2022-11-01] MEDS ORDERED: modafiniL 100 MG TAB PO SCH (09:00)
[2022-11-01] MEDS ORDERED: ASPIRIN 81 MG ECTAB PO SCH ×2 (09:00→21:00)
[2022-11-01] MEDS ORDERED: ASCORBIC ACID 500 MG TAB PO SCH (09:00)
[2022-11-01] MEDS ORDERED: PSYLLIUM or GUAR GUM FIBER POWDER PACKET PO SCH (09:00)
--- NOTE | 2022-11-01 14:07 | Cardiology Consultation ---
Date of Consultation November 01, 2022 Assessment & Plan (1) Bradycardia: (2) Chest pain: (3) CAD (coronary artery disease): (4) S/P CABG x 2: (5) Status post insertion of drug-eluting stent into left anterior descending artery for coronary artery disease: (6) HTN (hypertension): (7) Hyperlipidemia: Plan ASSESSMENT/PLAN: 1. Bradycardia: Heart rate reasonable. Mild bradycardia but appears to be asymptomatic. Beta-kali recently down regulated by Dr. Webb, his primary drafter tool design. Can continue his home dose of metoprolol for now. If found to have issues with chronotropic incompetence in the future, could further reduce metoprolol to 12.5 mg daily or discontinue altogether. This can be followed up in the outpatient setting. Bradycardia is chronic and not likely playing a role for his presentation. 2. Chest pain: He states it is different than prior angina. Has had chronic intermittent chest discomfort and numbness ever since CABG. Troponin negative x3. ECG unchanged. Echo pending. Ischemic evaluation not necessary at this time, pending echo findings. 3. CAD s/p CABG x 2 and LAD PCI: No definite angina. Continue aspirin indefinitely. Continue beta-kali as tolerated. Continue high-intensity statin therapy. 4. Hypertension: Blood pressure well controlled. No changes made. 5. Dyslipidemia: LDL not at goal and was addressed by Dr. Webb. Continue high-intensity statin therapy as tolerated. Follow-up with Dr. Webb. 6. Epigastric pain/nausea: 2 family members had similar symptoms. His presentation may be due to gastroenteritis and patient is concerned about food related illness. Fortunately, feeling much better today. 7. Disposition: Echo pending. If echo without significant changes, okay to be discharged from a cardiology perspective. Follow-up with Dr. Webb, his primary drafter tool design. Patient care discussed with primary hospitalist, Dr. Borges. Today's visit was 44 minutes in duration, which includes [id number] time, counseling patient, coordinating care, discussing with primary hospitalist, re viewing records, and documentation. Thank you for allowing me to participate in the care of your patient. Please call for any other questions or concerns. Sincerely, Los Spivey M.D. History of Present Illness Reason for Consultation: Bradycardia Requesting Physician: Lucrecia Lopez Attending Physician: Parker Borges MD History of Present Illness Mr. Mustafa is a very pleasant 72-year-old gentleman with history significant for CAD s/p CABG x 2 (LEON and YAMINI 2010), LAD PCI (2009), hypertension, dyslipidemia, and prediabetes. His primary drafter tool design is Dr. Webb. He was hospitalized on 10/31/2022 after presenting with nausea, epigastric discomfort, chest discomfort. In 2009, he underwent a [employer] physical, including a stress test which was abnormal and prompted cardiac catheterization and LAD PCI. In 2010, he felt unwell and had tightness in his chest. He underwent cardiac catheterization and was referred to [facility] for CABG x2. This particular time, he had an upset stomach for 2 or 3 days but no vomiting or diarrhea. The day of presentation, he had nausea and heartburn and felt overheated. There was a tightness in his chest. He states that the tightness was different than prior angina. He has had a tightness and numbness in his chest ever since CABG. The chest tightness is predominantly right-sided but can involve the entire chest. With his presenting symptoms, there was no radiation to the arm. He took nitroglycerin at home and states he may have felt better for the resulting headache may have been enough to mask his symptoms. He admits that he had symptoms for greater than 1 hours. High sensitivity troponin has been seven on 3 separate evaluations. He has had increased gas and has had intermittent heartburn/epigastric discomfort and bloating overnight. When he was seen this morning, he stated that he felt much better and feels back to baseline. He has been able to tolerate breakfast and also ambulation in his room. He has chronically been bradycardic. He has a smart watch and typically is heart rate is in the 50s at rest. With exertion it increases to the 60s to 70s and with more strenuous exercise, heart rate will increase 80s to 90s. Metoprolol tartrate was recently discontinued at 25 mg twice daily and replace with metoprolol succinate [address] Webb due to mild bradycardia and reduced sexual function. Until his fistula surgery in September, he had been exercising with a treadmill and stationary bike and had no exertional symptoms. his stamina reported as good. His has recently had gastric issues with an upset stomach for a few days and his son had GI illness yesterday, including diarrhea. He himself denies diarrhea, vomiting, fever, shaking chills. He denies syncope, near-syncope, palpitations, edema. He had bright red blood per rectum following fistula surgery but this has since resolved. Review of systems: Review of systems as noted above and otherwise unremarkable. Family history: Father from [place] at the age of 66. Mother had CT in her 90s. Social history: He denies smoking. Occasional alcohol. Lives at home with his and son and room. Two sons in total. He was unaccompanied in his hospital room. Allergies Allergy/AdvReac Type Severity Reaction Status Date / Time cat dander Allergy Mild CONGESTION Verified 10/31/22 20:15 Home Medications Medication Instructions Recorded Confirmed Type multivitamin (Daily Multi-Vitamin 0.5 tab PO BID 09/19/19 10/31/22 History tablet) aspirin 325 mg tablet 325 mg PO HS 11/30/19 10/31/22 History fexofenadine 180 mg tablet 180 mg PO DAILY PRN Congestion 11/30/19 10/31/22 History psyllium husk 3.4 gram/5.4 gram 1 tbsp PO QAM 11/30/19 10/31/22 History oral powder (Metamucil) artificial tears(hypromellose) 0.3 1 drp ophthalmic (eye) DAILY PRN 09/25/21 10/31/22 History % eye gel (Systane Gel) Dry Eyes biotin 1,000 mcg chewable tablet 1,000 mcg PO TID 09/25/21 10/31/22 History cholecalciferol (vitamin D3) 25 1,000 unit PO TID 09/25/21 10/31/22 History mcg (1,000 unit) capsule propylene glycol 0.6 % eye drops 2 drp ophthalmic (eye) DAILY PRN 09/25/21 10/31/22 History (Systane Balance) Dry Eyes albuterol sulfate 90 mcg/actuation See Rx Instructions .Route 04/21/22 10/31/22 Rx aerosol inhaler .COMPLEX #18 ea sildenafil 100 mg tablet 100 mg PO DAILY PRN sexual 04/21/22 10/31/22 Rx activity #10 tabs modafinil 200 mg tablet 200 mg PO DAILY #90 tabs 06/01/22 10/31/22 Rx atorvastatin 40 mg tablet 40 mg PO HS #90 tabs 07/06/22 10/31/22 Rx losartan 50 mg-hydrochlorothiazide 1 tab PO QAM #90 tabs 07/06/22 10/31/22 Rx 12.5 mg tablet CPAP Machine 07/31/22 09/29/22 History ascorbic acid (vitamin C) 500 mg 500 mg PO DAILY 07/31/22 10/31/22 History tablet zinc gluconate 50 mg tablet 50 mg PO DAILY 07/31/22 10/31/22 History tamsulosin 0.4 mg capsule 0.4 mg PO DAILY #90 caps 08/25/22 10/31/22 Rx metformin 750 mg tablet,extended 1,500 mg PO QPM #180 tabs 09/02/22 10/31/22 Rx release 24 hr metoprolol succinate 25 mg 25 mg PO DAILY #90 tabs 09/29/22 10/31/22 Rx tablet,extended release 24 hr nitroglycerin 0.4 mg sublingual 0.4 mg sublingual Q5M PRN chest 09/29/22 10/31/22 Rx tablet pain #20 tabs sitagliptin phosphate 100 mg tablet 100 mg PO QAM #90 tabs 10/09/22 10/31/22 Rx coQ10 (ubiquinol) 200 mg capsule 200 mg PO Q OTHER DAY 10/31/22 10/31/22 History mometasone 220 mcg/actuation(60 1 inh inhalation BID 10/31/22 10/31/22 History doses) breath activated powder inhaler (Asmanex Twisthaler) Patient History Medical History (Updated 10/31/22 @ 21:24 by Lucrecia Lopez PA-C) Arthritis COVID-19 Elevated PSA GERD (gastroesophageal reflux disease) Gross hematuria H/O adenomatous polyp of colon History of colon polyps Migraine 25 YRS AGO-WITH VISION DISTORTION AT THE TIME MVP (mitral valve prolapse) HX NO DENTAL PREMED Restrictive lung disease secondary to obesity UTI (urinary tract infection) Surgical History (Updated 11/01/22 @ 14:14 by Robin Spivey MD) H/O lithotripsy History of colonoscopy History of tooth extraction WISDOM TEETH S/P CABG x 2 (2010) YAMINI & LEON grafts, no vein grafts Status post insertion of drug-eluting stent into left anterior descending artery for coronary artery disease (2009) Family History Father Myocardial infarction Coronary heart disease Diabetes Aunt Family history of diabetes mellitus Mother Myocardial infarction age related Glaucoma Aunt Diabetes maternal Denies family history of Prostate cancer Breast cancer Colorectal cancer Social History Smoking Status: Never smoker Second Hand Exposure: No; Do You Dip or Chew Tobacco: No; Tobacco Cessation Education Requested by Patient: No Hx Alcohol Use: Yes Alcohol type: wine Alcohol Intake Frequency Comment: 1-2 times weekly Hx Substance Use: No Preferred Language: Wallisian Communication Ability: Effective Visual Impairment: Limited Hearing Ability: Normal Dental Assistant Teacher Required: No Beliefs That Will Affect Care: None marital status: Current Living Situation: Spouse current occupational status: retired How many Children do You have: 2 Other Information That Helps Us Care for You: No Feels Safe at Home: Yes Safety Concerns: Feels Safe At This Time Childhood Exposure to Second-Hand Smoke: Yes caffeine: Yes (coffee ) Dental Care, Regularly: Yes Physical Activity Frequency: Daily Physical Activity Frequency Comment: walks Seatbelt Use: always Sunscreen Use: Yes Assistive Devices: Glasses Physical Exam Physical Exam: Gen.: No acute distress. Alert and oriented. HEENT: Anicteric sclera. Neck: No JVD. Normal carotid upstrokes bilaterally. Cardiac: PMI was nondisplaced. No ventricular heave. Regular. Normal S1-S2. No murmurs, rubs, or gallops. Pulmonary: Clear to auscultation bilaterally without wheezes, rales, or rhonchi. Abdomen: Soft, nontender, nondistended, with normoactive bowel sounds. No bruits noted. Extremities: 2+ radial pulses bilaterally. 2+ posterior tibialis pulses bilaterally. No edema or cyanosis. Psychiatric: Affect appears appropriate. Chest: Nontender to palpation. Results & Data ([facility]) Vital Signs (Past 12 Hours) Vital Signs Temp Pulse Pulse Resp BP Pulse Ox O2 Del Method 11/01/22 11:37 36.7 C 62 19 109/63 93 Room Air 11/01/22 11:27 53 L 11/01/22 07:37 36.7 C 50 L 20 100/54 L 93 CPAP 11/01/22 04:20 52 L 16 118/67 95 CPAP 11/01/22 02:59 36.7 C 51 L 20 99/57 L 92 CPAP Laboratory Results Laboratory Results - last 24 hr 10/31/22 10/31/22 10/31/22 19:38 19:38 19:53 WBC 7.25 RBC 4.30 L Hgb 13.7 L Hct 40.9 MCV 95.1 MCH 31.9 MCHC 33.5 RDW Std Deviation 49.1 H RDW Coeff of Tamie 14.2 Plt Count 157 MPV 10.6 Immature Gran % (Auto) 0.1 Neut % (Auto) 65.7 Lymph % (Auto) 24.4 [place] % (Auto) 7.7 Eos % (Auto) 1.5 Baso % (Auto) 0.6 Neut # (Auto) 4.76 Lymph # (Auto) 1.77 [place] # (Auto) 0.56 Eos # (Auto) 0.11 Baso # (Auto) 0.04 Immature Gran # (Auto) 0.01 Sodium 140 Potassium 4.1 Chloride 102 Carbon Dioxide 32 Anion Gap 6 BUN 17 Creatinine 0.75 Est Cr Clr Drug Dosing 105.2 Est GFR ( Amer) 104.7 Est GFR (Non-Af Amer) 90.4 BUN/Creatinine Ratio 22.7 H Glucose 162 H POC Glucose Calcium 9.0 Total Bilirubin 0.4 AST 30 ALT 49 Alkaline Phosphatase 49 Troponin I High Sens 7.3 Total Protein 6.6 Albumin 4.2 Globulin 2.4 L Albumin/Globulin Ratio 1.8 Lipase 19 SARS-CoV-2, RNA, NAAT NEGATIVE 10/31/22 10/31/22 11/01/22 21:47 22:21 03:59 WBC RBC Hgb Hct MCV MCH MCHC RDW Std Deviation RDW Coeff of Tamie Plt Count MPV Immature Gran % (Auto) Neut % (Auto) Lymph % (Auto) [place] % (Auto) Eos % (Auto) Baso % (Auto) Neut # (Auto) Lymph # (Auto) [place] # (Auto) Eos # (Auto) Baso # (Auto) Immature Gran # (Auto) Sodium Potassium Chloride Carbon Dioxide Anion Gap BUN Creatinine Est Cr Clr Drug Dosing Est GFR ( Amer) Est GFR (Non-Af Amer) BUN/Creatinine Ratio Glucose POC Glucose 137 H Calcium Total Bilirubin AST ALT Alkaline Phosphatase Troponin I High Sens 7.5 7.1 Total Protein Albumin Globulin Albumin/Globulin Ratio Lipase SARS-CoV-2, RNA, NAAT 11/01/22 11/01/22 07:36 11:36 WBC RBC Hgb Hct MCV MCH MCHC RDW Std Deviation RDW Coeff of Tamie Plt Count MPV Immature Gran % (Auto) Neut % (Auto) Lymph % (Auto) [place] % (Auto) Eos % (Auto) Baso % (Auto) Neut # (Auto) Lymph # (Auto) [place] # (Auto) Eos # (Auto) Baso # (Auto) Immature Gran # (Auto) Sodium Potassium Chloride Carbon Dioxide Anion Gap BUN Creatinine Est Cr Clr Drug Dosing Est GFR ( Amer) Est GFR (Non-Af Amer) BUN/Creatinine Ratio Glucose POC Glucose 149 H 117 H Calcium Total Bilirubin AST ALT Alkaline Phosphatase Troponin I High Sens Total Protein Albumin Globulin Albumin/Globulin Ratio Lipase SARS-CoV-2, RNA, NAAT Diagnostic Findings Telemetry personally reviewed: Sinus rhythm typically in the 50s to 60s. Overnight while sleeping, heart rate in the high 40s at times. No significant pause. ECG personally reviewed 10/31/2022: Sinus rhythm with PAC 65 beats per minute. Incomplete RBBB. Anterior T-wave abnormality. No significant change from prior ECG on 05/21/2015. Chest x-ray 10/31/2022: No acute cardiopulmonary findings per Radiology. Medications Administered Current Inpatient Medications Acetaminophen (Acetaminophen 325 Mg Tab) 650 mg PO Q4H PRN PRN Reason: Pain or Fever Stop: 11/30/22 21:43 Al Hydrox/Mg Hydrox/Simethicone (Aluminum/Magnesium Susp 30 Ml Udc) 15 ml PO Q4H PRN PRN Reason: Dyspepsia Stop: 11/30/22 21:43 Albuterol (Albuterol Hfa 8 Gm Inhaler) 2 puffs INH Q4H PRN PRN Reason: Shortness Of Breath Stop: 11/30/22 21:43 Artificial Tears (Artificial Tears) 2 drops OP DAILY PRN PRN Reason: Dry Eyes Stop: 11/30/22 22:05 Ascorbic Acid (Ascorbic Acid 500 Mg Tab) 500 mg PO DAILY [place] Stop: 12/01/22 08:59 Last Admin: 11/01/22 08:52 Dose: 500 mg Aspirin (Aspirin 81 Mg Ectab) 81 mg PO HS [place] Stop: 12/01/22 20:59 Atorvastatin Calcium (Atorvastatin 40 Mg Tab) 40 mg PO HS [place] Stop: 11/30/22 21:43 Last Admin: 10/31/22 22:44 Dose: 40 mg Dextrose (Dextrose 50% 50 Ml Syringe) 25 - 50 ml IV UD PRN; Protocol PRN Reason: Hypoglycemia Protocol Stop: 11/30/22 21:43 Fexofenadine HCl (Fexofenadine Hcl 180 Mg Tab) 180 mg PO DAILY PRN PRN Reason: Congestion Stop: 11/30/22 21:43 Fluticasone Furoate (Fluticasone Furoate 200mcg 14 Puffs/Inhaler) 1 puffs INH DAILY [place] Stop: 12/01/22 08:59 Last Admin: 11/01/22 08:58 Dose: Not Given Glucagon (Glucagon For Inj 1 Mg Vial) 1 mg SQ UD PRN; Protocol PRN Reason: Hypoglycemia Protocol Stop: 11/30/22 21:43 Glucose (Glucose 40% Gel 15 Gm Tube) 15 - 30 gm PO UD PRN; Protocol PRN Reason: Hypoglycemia Protocol Stop: 11/30/22 21:43 Glucose (Glucose 10 Tab/Tube) 4 - 8 tab PO UD PRN; Protocol PRN Reason: Hypoglycemia Treatment Stop: 11/30/22 21:43 HCTZ/Losartan Potassium (Losartan/Hctz 50/12.5mg Tab) 1 tab PO QAM [place] Stop: 12/01/22 08:59 Last Admin: 11/01/22 08:52 Dose: 1 tab Insulin Aspart (Insulin Aspart Per Unit) 0 units SC ACHS [place] Stop: 11/30/22 21:43 Last Admin: 11/01/22 12:49 Dose: 4 units Insulin Glargine (Lantus Per Unit Charge) 5 units SQ BID [place] Stop: 11/30/22 21:43 Last Admin: 11/01/22 08:47 Dose: 5 units Metoprolol Succinate (Metoprolol Succ 25mg Ext Rel Tab) 25 mg PO DAILY [place] Stop: 12/01/22 08:59 Last Admin: 11/01/22 08:52 Dose: 25 mg Miscellaneous (Carbohydrates For Hypoglycemia ) 15 - 30 gm PO UD PRN PRN Reason: Hypoglycemia Protocol Stop: 11/30/22 21:43 Modafinil (Modafinil 100 Mg Tab) 200 mg PO DAILY [place] Stop: 12/01/22 08:59 Last Admin: 11/01/22 09:17 Dose: 200 mg Multivitamins (Multivitamin Tab) 0.5 tab PO BID [place] Stop: 11/30/22 21:43 Last Admin: 11/01/22 08:51 Dose: 0.5 tab Nitroglycerin (Nitroglycerin Sl 0.4 Mg/Tab Tab) 0.4 mg SL Q5M PRN PRN Reason: chest pain Stop: 11/30/22 21:43 Nitroglycerin (Nitroglycerin 2% Ointment 30gm Tube) 1 inch EXT Q6 [place] Stop: 12/01/22 00:00 Last Admin: 11/01/22 12:57 Dose: 1 inch Ondansetron HCl (Ondansetron Inj 2 Mg/Ml 2 Ml Vial) 4 mg IV Q6H PRN PRN Reason: Nausea Stop: 11/30/22 21:43 Pantoprazole Sodium (Pantoprazole 40 Mg Tab) 40 mg PO DAILY [place] Stop: 12/01/22 08:59 Last Admin: 11/01/22 08:53 Dose: 40 mg Psyllium Hydrophilic Mucilloid (Psyllium Or Guar Gum Fiber Powder Packet) 1 pkt PO QAM [place] Stop: 12/01/22 08:59 Last Admin: 11/01/22 08:54 Dose: 1 pkt Tamsulosin HCl (Tamsulosin Hcl 0.4 Mg Cap) 0.4 mg PO HS [facility] Stop: 12/01/22 20:59 Vitamin D (Cholecalciferol 1,000 Units 25 Mcg Tab) 1,000 units PO TID [place] Stop: 11/30/22 21:43 Last Admin: 11/01/22 12:53 Dose: 1,000 units Zinc Sulfate (Zinc Sulfate 220 Mg Capsule) 220 mg PO DAILY [place] Stop: 12/01/22 08:59 Last Admin: 11/01/22 08:52 Dose: 220 mg PG Care Time/CCT Total # of Minutes Spent Total Time Spent with Patient: Total time spent is greater than 50% in coordination of care (as documented) at patient's floor/unit and/or counseling patient: Coding Level of Care Code 25382 Office/Outpt Visit, Est Diagnoses Bradycardia R00.1 Chest pain R07.9 CAD (coronary artery disease) I25.10 S/P CABG x 2 Z95.1 Status post insertion of drug-eluting stent into left anterior descending artery for coronary artery disease Z95.5 HTN (hypertension) I10 Hyperlipidemia E78.5 Time Spent (min) 44
--- NOTE | 2022-11-01 17:14 | XCELERA ---
[id number]
--- NOTE | 2022-11-01 18:37 | Discharge Summary ---
Date of Service November 01, 2022 Admission HPI Per Admitting Provider Vinay Mustafa is a 72-year-old male with a past medical history significant for CAD s/p drug-eluting LAD stent 2009, CABG 2010 with YAMINI, LEON grafts, hypertension, hyperlipidemia, diabetes, MAXIMO, BPH, and GERD who is presenting today with onset of chest pressure and nausea. Patient states for the past couple days he and his have had some GI upset and intermittent nausea due to a meal they ate on , and today was similar to previous days in which she just felt nauseous throughout the day. This evening he had chest he is with cheese and salsa as well as cheese stuffed shells. Shortly after he walked downstairs into his office, and while at rest had onset of central chest pressure. He does note he felt warm with the episode but there is a wood- burning stove in his office and he attributes it to this. The pain did not radiate anywhere, he was not short of breath with it, did not get any more nauseous or vomit with the episode. No lightheadedness, dizziness, palpitations. He took nitro which alleviated the pain very quickly. He is presenting to the ED for further evaluation. Currently rates chest pain 0/10, was still having some mild chest pain on presentation so he did receive an additional dose of nitro which has worked well. Upon presentation to the ED, he is hypertensive 152/72, otherwise vital signs are all within normal limits. Labs are largely unremarkable, he has any hemoglobin of 13.7 which is his baseline. There is no leukocytosis, electrolyte abnormalities, or elevated troponin, his first was measured at 7.3. His glucose is a bit up at 162. CXR shows no acute disease process. He was given a full dose aspirin as well as nitroglycerin in the ED, with alleviation in his chest pressure. Principal Diagnosis chest pain likely noncardiac. Discharge Exam I evaluated the patient around 6 PM on the day of discharge. He has been walking around the floor most of the day impatient to go home. His echocardiogram had reported just come back. Denies any chest pain or dizziness. Has not been exercising for the last few weekshis exercise considered to walk walking his dog with his daily which is stopped now. 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 - Initial troponin 7.3, repeat ordered for this evening. - EKG not yet uploaded and available for my review, per ER provider note there were ST depressions in V3 to V6 with T wave inversions. However the EKG abnormalities not noted by admitting team. - Chest pain did improve with nitro at home, he also received an additional dose of nitro and a full dose of aspirin in ED. - He will be observed overnight for repeat troponins, echo in AM. - Cardiology consulted given episodes of bradycardia. - Per review of his most recent cardiology visit from last month, he had been doing well from a cardiac standpoint, physically active without any chest pain working at the [employer]. Has stopped exercising for the last 1 week or so and is obese. His metoprolol dose was changed from 25 mg tartrate twice daily to metoprolol succinate 25 mg once daily due to mild bradycardia. He remains on losartan/HCTZ and a moderate dose of a high high intensity statin. (2) Bradycardia: - Patient's previously been told he has low heart rate, metoprolol was recently dose from tartrate 25 mg twice daily to 25 mg succinate once daily. - During ED evaluation, heart rate has been as low as 39, frequently in the 40s, patient has been asymptomatic with this. -Metoprolol first held and then resumed. Cardiology was not worried about this bradycardia. Heart rate in the 50s and 60s here and asymptomatic. The patient has an apple watch and he watches his heart rate - With increased fatigue over the past several weeks/months, consideration has been given to hypothyroidism. TSH last checked in July, was normal at that time. (3) Nausea: - Patient and his both have had some nonspecific abdominal pain and nausea over the past several days, he also had a spicy meal this evening for dinner, suspect nausea and chest pressure may be GERD related if no cardiac cause can be determined. - Will order Protonix. (4) CAD (coronary artery disease): - SRAVANI to the LAD in 2009, CABG in 2010 with YAMINI and LENO grafts and no vein grafts. - Continue metoprolol losartan/HCTZ,, aspirin. - Echo 2013: Normal stress echo, no exercise-induced chest pain or ischemia, no EKG changes, dysrhythmia. 11/01 repeat echocardiogram reveals LVEF 60 to 65% with mildly reduced right ventricular systolic function, moderate LVH LA mildly dilated, no valvular abnormalities (5) HTN (hypertension): - Continue metoprolol, HCTZ/losartan. 133/68, 62 at discharge time (6) Hyperlipidemia: - Continue statin. (7) Diabetes: - On metformin and sitagliptin at home, hold all admitted. - SSI basal/bolus insulin. - A1c in July 29 0.1%. - DM2 diet. (8) Obstructive sleep apnea: - CPAP at night. - Continue modafinil. (9) Benign localized hyperplasia of prostate with urinary obstruction: - Continue Flomax. (10) Anemia: - Hgb 13.7, at baseline. (11) Extrinsic asthma: - No evidence of exacerbation today, continue home inhalers. Plan Discharge home. Advised to exercise and lose weight. 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 He had good insight and agrees that he needs to exercise Cardiology have cleared him for discharge. His symptoms appear more GI than angina-like. He is to follow-up with his own stripper machine operator Dr. Webb in the next 2 weeks. All home meds continued and Pepcid added 20 mg twice a day. Total Time Total Time Spent Total Time Spent (In Minutes): 40 Discharge Plan Discharge Items Patient Disposition: Home - Self-Care Reason For Visit: CHEST PAIN R/O Discharge Diagnosis: Chest pain noncardiac Activity: Resume your previous activity Activity Comment: Please start exercising regularly. You have access to a gym. Non-emergency contact: Primary Care Provider Call non-emergency contact if: you have any medication questions Follow-up/Referrals: Marcel Porter MD [Primary Care Provider] - Diet: Carb Consistent or DM2 and Heart Healthy Addtl Attending Provider Instructions: See your stripper machine operator in the next 2 weeks for follow-up. Pending Studies at Discharge: No Stand-Alone Forms: My [facility] Medications and DC Order Prescriptions: New famotidine [Pepcid] 20 mg tablet 20 mg PO BID 42 Days Qty: 84 0RF Continued albuterol sulfate 90 mcg/actuation HFA aerosol inhaler See Rx Instructions .ROUTE .COMPLEX Qty: 18 3RF Dose Instruction: TAKE 2 PUFFS BY MOUTH EVERY 4 TO 6 HOURS NEEDED Rx Instructions: TAKE 2 PUFFS BY MOUTH EVERY 4 TO 6 HOURS NEEDED sildenafil 100 mg tablet 100 mg PO DAILY PRN (Reason: sexual activity) Qty: 10 3RF Rx Instructions: administer 30 minutes to 4 hours before activity atorvastatin 40 mg tablet 40 mg PO HS Qty: 90 3RF losartan-hydrochlorothiazide 50-12.5 mg tablet 1 tab PO QAM Qty: 90 3RF tamsulosin 0.4 mg capsule 0.4 mg PO DAILY Qty: 90 3RF metformin 750 mg tablet extended release 24 hr 1,500 mg PO QPM Qty: 180 3RF sitagliptin phosphate 100 mg tablet 100 mg PO QAM Qty: 90 3RF biotin 1,000 mcg tablet,chewable 1,000 mcg PO TID Systane Balance 0.6 % drops 2 drp ophthalmic (eye) DAILY PRN (Reason: Dry Eyes) Systane Gel 0.3 % gel 1 drp ophthalmic (eye) DAILY PRN (Reason: Dry Eyes) modafinil 200 mg tablet 200 mg PO DAILY Qty: 90 1RF Rx Instructions: Approved through 11/11/22 via [employer] multivitamin [Daily Multi-Vitamin] tablet 0.5 tab PO BID cholecalciferol (vitamin D3) 25 mcg (1,000 unit) capsule 1,000 unit PO TID metoprolol succinate 25 mg tablet extended release 24 hr 25 mg PO DAILY Qty: 90 3RF nitroglycerin 0.4 mg tablet, sublingual 0.4 mg SL Q5M PRN (Reason: chest pain) Qty: 20 0RF Rx Instructions: until response; do not exceed 3 doses per episode zinc gluconate 50 mg tablet 50 mg PO DAILY ascorbic acid (vitamin C) 500 mg tablet 500 mg PO DAILY (DME) CPAP Machine Misc See Rx Instructions .Route Rx Instructions: As directed aspirin 325 mg tablet 325 mg PO HS fexofenadine 180 mg tablet 180 mg PO DAILY PRN (Reason: Congestion) Metamucil 3.4 gram/5.4 gram Powder 1 tbsp PO QAM coQ10 (ubiquinol) 200 mg Capsule 200 mg PO Q OTHER DAY Asmanex Twisthaler 220 mcg/ actuation (60) aerosol powdr breath activated 1 inh inhalation BID Rx Instructions: INHALE 1 PUFF BY MOUTH TWICE A DAY Discharge Orders: Discharge Order (Routine); Ordered 11/01/22 Ordered By: Parker Borges Admission Data Admit Date/Time: 10/31/22 20:48 Attending Provider: Parker Borges Admit Provider: Pj Christie Primary Care Provider: Marcel Porter Other Providers: Pj Christie ; Robin Spivey Other Interventions: Discharge Summary Assessment (RN) Last Done: 11/01/22 18:16 Coding Level of Care Code D/C DAY MANAGEMENT >30 MINS Diagnoses Chest pain R07.9 Bradycardia R00.1 Nausea R11.0 CAD (coronary artery disease) I25.10 HTN (hypertension) I10 Hyperlipidemia E78.5 Diabetes E11.9 Obstructive sleep apnea G47.33 Benign localized hyperplasia of prostate with urinary obstruction N40.1; N13.8 Anemia D64.9 Extrinsic asthma J45.909
--- NOTE | 2022-11-02 06:10 | Electrocardiogram Report ---
Test Reason : Blood Pressure : / mmHG Vent. Rate : 065 BPM Atrial Rate : 065 BPM P-R Int : 192 ms QRS Dur : 094 ms QT Int : 418 ms P-R-T Axes : 034 -06 068 degrees QTc Int : 434 ms Sinus rhythm Premature supraventricular complexes Incomplete right bundle branch block Possible Anterior infarct , age undetermined Nonspecific T wave abnormality Abnormal ECG When compared with ECG of 21-MAY-2015 10:37, Borderline criteria for Anterior infarct are now Present Confirmed by Robin Spivey ([id number]) on 11/02/2022 6:10:22 AM Referred By: REFERRED SELF Confirmed By:Robin Spivey
--- NOTE | 2022-11-02 06:31 | Electrocardiogram Report ---
Test Reason : Blood Pressure : / mmHG Vent. Rate : 057 BPM Atrial Rate : 057 BPM P-R Int : 194 ms QRS Dur : 094 ms QT Int : 416 ms P-R-T Axes : 017 -26 063 degrees QTc Int : 404 ms Sinus bradycardia Abnormal ECG When compared with ECG of 31-OCT-2022 19:34, Borderline criteria for Anterior infarct are no longer Present T wave inversion more evident in Anterior leads Premature supraventricular complexes are no longer Present Confirmed by Robin Spivey ([id number]) on 11/02/2022 6:31:04 AM Referred By: REFERRED SELF Confirmed By:Robin Spivey
== END 2022-11-01 19:47 | disposition home or self-care (01) ==
LOC: ED 19:23 → 4W 19:23 → SUATTDRO 20:48 → 4W 21:12 → 2N 11-01 14:00